=== PATIENT | male | born 1940 | race Caucasian/White ===

== ENCOUNTER 2021-01-05 09:56 | Emergency (ER) | payer OTHER, MEDICARE, SELFPAY ==
[2021-01-05 09:58] VITALS: BP 180/124; PULSE 75; RESP 17; TEMP 37.1; O2SAT 97; BMI 26.6
--- NOTE | 2021-01-05 10:12 | ECG_ITS ---
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 Measurements Intervals [place] Rate: 84 P: 61 [place]: 193 QRS: -10 QRSD: 97 T: 260 QT: 404 QTc: 480 Interpretive Statements SINUS RHYTHM WITH FREQUENT SUPRAVENTRICULAR PREMATURE COMPLEXES SEPTAL MYOCARDIAL INFARCTION , PROBABLY OLD [40+ ms Q WAVE IN V1/V2] Diffuse nonspecific T wave changes No previous ECG available for comparison Electronically Signed On 01-05-2021 23:55:49 CDT by Cherelle Wallace M.D. [id number]
--- NOTE | 2021-01-05 10:13 | W.ED.GENADLT ---
HPI - General Adult General: Chief complaint: General Medical Stated complaint: NOT FEELING WELL Time Seen by Provider: 01/05/21 10:08 History of Present Illness: HPI narrative: Patient arrives via ambulance complaint of not feeling well earlier. Patient states he called the ambulance to have himself checked out and they can find anything wrong with them and they brought him in here. Patient says he feels fine now ready go home. Denies any shortness of breath chest pains strokelike symptoms or other related problems. Said he just felt cold this morning but now feels fine complaint: Coldness Onset (ago): hour(s) Severity: mild Associated symptoms: Reports no associated symptoms; Deny chest pain, dyspnea, headache(s), nausea, rash or vomiting Review of Systems Narrative: [place] cold this morning, has hypertension history Const: Denies: fever(s), chills or body aches Eyes: Denies: change in vision or blurry vision ENMT: Denies: throat pain or nasal congestion Card: Denies: chest pain or dyspnea on exertion Resp: Denies: dyspnea, productive cough or non-productive cough GI: Denies: abdominal pain, nausea or vomiting : Denies: difficulty urinating Musc: Denies: extremity pain Skin/Breast: Denies: rash Neuro: Denies: headache(s) Psych: Denies: anxiety or depression Dash/Lymph: Denies: easy bruising Physical Exam Const: COMMON NORMALS: no acute distress, average body habitus and alert ORIENTATION/CONSCIOUSNESS: Yes oriented to person, Yes oriented to place and Yes oriented to time (Is orientated to month and who is president but does not know year) HENMT: COMMON NORMALS: normocephalic HEAD & SCALP: normal to inspection and normocephalic FACE & SINUS: normal facial exam Eye: COMMON NORMALS: conjunctivae normal GENERAL EYE: appearance normal, both eyes and all related structures CONJUNCTIVA: Yes conjunctivae normal Neck/C-Spine: COMMON NORMALS: no JVD Chest: COMMONS NORMALS: normal inspection of the chest Resp: COMMON NORMALS: normal respiratory effort and clear to auscultation bilaterally AUSCULTATION: clear to auscultation bilaterally Cardio: COMMON NORMALS: no JVD, regular rate and regular rhythm RATE: regular rate RHYTHM: regular rhythm GI: COMMON NORMALS: Normal to inspection, nondistended, normoactive bowel sounds present Extremity: COMMON NORMALS: normal to inspection and full ROM Neuro: SENSORIUM/ORIENTATION: Yes alert, Yes oriented to person, Yes oriented to place and Yes oriented to time (Is orientated to month and who is president but does not know year) SPEECH: speech normal SENSORY EXAM: Yes extremities MOTOR EXAM: 5/5 motor strength present throughout Course Vital Signs: Vital signs: Vital Signs Temperature 98.7 F 01/05/21 09:58 Pulse Rate 79 01/05/21 10:36 Respiratory Rate 18 01/05/21 10:36 Blood Pressure 180/124 01/05/21 10:37 Pulse Oximetry 98 01/05/21 10:36 MDM - General Adult MDM Narrative: Medical decision making narrative: Original lab draw of troponin was hemolyzed redrawn at 1111 Lab Data: Labs: Lab Results 01/05/21 01/05/21 01/05/21 Range/Units 10:01 10:01 10:01 WBC 5.3 (4.0-10.0) 10^3/ uL RBC 5.32 H (4.1-5.3) 10^6/u L Hgb 15.1 (11.7-16.6) g/dL Hct 47.1 (42.0-52.0) % MCV 88.5 (80-94) fL MCH 28.4 (28.0-34.0) pg MCHC 32.1 (30.0-36.0) g/dL RDW 12.4 (12.1-15.1) % Plt Count 150 (130-400) 10^3/c mm MPV 9.8 (7.4-10.4) fL Neut % (Auto) 63.7 % Lymph % (Auto) 21.8 % [place] % (Auto) 8.9 % Eos % (Auto) 4.3 % Baso % (Auto) 1.1 % Neut # (Auto) 3.38 (1.8-7.7) 10^3/u L Lymph # (Auto) 1.2 (0.8-4.8) 10^3/u L [place] # (Auto) 0.5 (0.2-0.9) 10^3/u L Eos # (Auto) 0.2 (0.0-0.8) 10^3/u L Baso # (Auto) 0.1 (0.0-0.1) 10^3/u L Nucleated RBC % (a uto) 0 % Nucleated RBCs # 0.0 /100WBC PT 13.60 (12.1-14.9) SECO NDS INR 1.01 (0.8-1.2) Sodium 136 (136-145) mmol/L Potassium 4.4 (3.5-5.1) mmol/L Chloride 98 (98-107) mmol/L Carbon Dioxide 28 (22-29) mmol/L Anion Gap 14.4 (5-19) BUN 33 H (8-23) mg/dL Creatinine 2.1 H (0.7-1.2) mg/dL GFR Calculation Not Reportable Glucose 126 H (65-115) mg/dL Calculated Osmolal ity 291 (285-295) mOsm/k g Calcium 8.7 (8.5-10.5) mg/dL Total Bilirubin 0.6 (0.15-1.2) mg/dL AST 12 (0-40) U/L ALT 14 (0-41) U/L Alkaline Phosphata se 27 L (40-130) IU/L Troponin T Baselin e Total Protein 7.1 (6.6-8.7) g/dL Albumin 4.5 (3.5-5.2) g/dL Globulin 2.6 (1.3-4.6) g/dL 01/05/21 Range/Units 10:01 WBC (4.0-10.0) 10^3/ uL RBC (4.1-5.3) 10^6/u L Hgb (11.7-16.6) g/dL Hct (42.0-52.0) % MCV (80-94) fL MCH (28.0-34.0) pg MCHC (30.0-36.0) g/dL RDW (12.1-15.1) % Plt Count (130-400) 10^3/c mm MPV (7.4-10.4) fL Neut % (Auto) % Lymph % (Auto) % [place] % (Auto) % Eos % (Auto) % Baso % (Auto) % Neut # (Auto) (1.8-7.7) 10^3/u L Lymph # (Auto) (0.8-4.8) 10^3/u L [place] # (Auto) (0.2-0.9) 10^3/u L Eos # (Auto) (0.0-0.8) 10^3/u L Baso # (Auto) (0.0-0.1) 10^3/u L Nucleated RBC % (a uto) % Nucleated RBCs # /100WBC PT (12.1-14.9) SECO NDS INR (0.8-1.2) Sodium (136-145) mmol/L Potassium (3.5-5.1) mmol/L Chloride (98-107) mmol/L Carbon Dioxide (22-29) mmol/L Anion Gap (5-19) BUN (8-23) mg/dL Creatinine (0.7-1.2) mg/dL GFR Calculation Glucose (65-115) mg/dL Calculated Osmolal ity (285-295) mOsm/k g Calcium (8.5-10.5) mg/dL Total Bilirubin (0.15-1.2) mg/dL AST (0-40) U/L ALT (0-41) U/L Alkaline Phosphata se (40-130) IU/L Troponin T Baselin e Cancelled Total Protein (6.6-8.7) g/dL Albumin (3.5-5.2) g/dL Globulin (1.3-4.6) g/dL EKG Data^: EKG 1: EKG interpretation date: 01/05/21 EKG interpretation time: 10:56 Computer generated interpretation: Ventricular rate 84 bpm MT interval 193 ms QRS duration 97 ms QT is 404 shows sinus rhythm with frequent PVCs probable old septal infarct Q wave in V1 V2 Coding Level of Care Code ED Repair Supervisor for Chg Fwd Exam Comprehensive
[2021-01-05 10:21] LABS: Basophils # 0.1 10^3/uL (0.0-0.1); Basophils % 1.1 %; Eosinophils # 0.2 10^3/uL (0.0-0.8); Eosinophils % 4.3 %; Hematocrit 47.1 % (42.0-52.0); Hemoglobin 15.1 g/dL (11.7-16.6); Lymphocytes # 1.2 10^3/uL (0.8-4.8); Lymphocytes % 21.8 %; Mean Corpuscular HGB Conc 32.1 g/dL (30.0-36.0); Mean Corpuscular Hemoglobin 28.4 pg (28.0-34.0); Mean Corpuscular Volume 88.5 fL (80-94); Mean Platelet Volume 9.8 fL (7.4-10.4); Monocytes # 0.5 10^3/uL (0.2-0.9); Monocytes % 8.9 %; Neutrophils # 3.38 10^3/uL (1.8-7.7); Neutrophils % 63.7 %; Nucleated Red Blood Cells % 0 %; Platelet Count 150 10^3/cmm (130-400); Red Blood Count 5.32 10^6/uL (4.1-5.3); Red Cell Distribution Width 12.4 % (12.1-15.1); White Blood Count 5.3 10^3/uL (4.0-10.0)
[2021-01-05 10:33] LABS: INR 1.01 (0.8-1.2)
[2021-01-05 10:36] VITALS: BP 180/124; PULSE 79; RESP 18; O2SAT 98
[2021-01-05 10:37] VITALS: BP 180/124
[2021-01-05] MEDS: cloNIDine 0.1 mg Tablet PO (10:37)
[2021-01-05 10:43] LABS: Alanine Aminotransferase 14 U/L (0-41); Albumin Level 4.5 g/dL (3.5-5.2); Alkaline Phosphatase 27 IU/L (40-130); Anion Gap 14.4 (5-19); Aspartate Amino Transferase 12 U/L (0-40); Blood Urea Nitrogen 33 mg/dL (8-23); Calcium 8.7 mg/dL (8.5-10.5); Carbon Dioxide 28 mmol/L (22-29); Chloride 98 mmol/L (98-107); Globulin 2.6 g/dL (1.3-4.6); Glucose 126 mg/dL (65-115); Osmolality Calculated 291 mOsm/kg (285-295); Potassium 4.4 mmol/L (3.5-5.1); Sodium 136 mmol/L (136-145); Total Bilirubin 0.6 mg/dL (0.15-1.2); Total Protein 7.1 g/dL (6.6-8.7)
--- NOTE | 2021-01-05 12:12 | ECG_ITS ---
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 Measurements Intervals [place] Rate: 94 P: 26 [place]: 196 QRS: -33 QRSD: 102 T: 199 QT: 389 QTc: 487 Interpretive Statements SINUS RHYTHM WITH OCCASIONAL VENTRICULAR PREMATURE COMPLEXES WITH OCCASIONAL SUPRAVENTRICULAR PREMATURE COMPLEXES INFERIOR MYOCARDIAL INFARCTION , PROBABLY OLD [40+ ms Q WAVE AND/OR ST/T ABNORMALITY IN II/aVF] MODERATE T-WAVE ABNORMALITY, CONSIDER LATERAL ISCHEMIA [-0.1+ mV T WAVE IN I/aVL/V5/V6] Compared to ECG 01/05/2021 10:42:47 Ventricular premature complex(es) now present T-wave abnormality now present Possible ischemia now present Myocardial infarct finding still present Electronically Signed On 01-06-2021 0:05:38 CDT by Cherelle Wallace M.D. [id number]
[2021-01-05 12:13] LABS: Troponin(5th) Baseline 117 ng/L (0-15)
[2021-01-05 13:25] VITALS: BP 191/115; PULSE 75; RESP 18; O2SAT 98
--- NOTE | 2021-01-05 13:33 | PC.PHAR ---
pt states he has amlodipine 10mg and takes 1/2 tab prn-va has this as an expried medication in 2019-pt states he takes 1/2 tab (5mg) prn-pt states he has aspirin,omeprazole, and terazosin but isnt taking it-this medication is on pts [facility] med list
[2021-01-05 14:09] LABS: Troponin 5 2HR 106.4 ng/L (0-15); Troponin 5 2HR Delta -10.6 ABS# (0-10)
--- NOTE | 2021-01-05 14:36 | PC.NURSE ---
pt removed all monitoring equipment. pt removed peripheral IV. IV cathlon intact. dressing applied to IV site. pt states I feel better. I'm going home. pt advised that he may be having a heart attack and could be at high risk for secondary complications including permanent disability or . pt verbalizes understanding. pt assisted to the bathroom and assisted in changing into scrub bottoms due to holes and tears in current pajama bottoms. pt states that he wants the pajama bottoms to be thrown in the trash. nurse clarified and pt confirms to throw it away. nurse offered to call pt family or friend. pt declines. pt uses his personal cell phone to contact Chanell . pt would not let nurse speak to Chanell and pt would not provide nurse with Chanell's phone number. pt states Chanell is coming to get me. Take me out front. pt assisted to the ER lobby in a wheelchair with his personal belongings including jacket, wallet, cane, and cell phone.
== END 2021-01-05 14:47 | disposition left against medical advice (07) ==
PROVIDERS: Nurse Practitioner Family; Emergency Provider Family Medicine
DX: R68.89 Other general symptoms and signs (principal); Z53.21 Procedure and treatment not carried out due to patient leaving prior to being seen by health care provider
CPT/HCPCS: 36415; 80053; 84484; 85025; 85610; 93005; 99284